=== PATIENT | female | born 1965 | race Caucasian/White ===

== ENCOUNTER 2019-03-14 19:41 | Emergency (ER) | payer OTHER ==
--- OUTSIDE RECORDS SUMMARY | 2019-03-14 19:44 | XMS REPORT ---
:1965 [facility] Address [address] [place] [address] Care Team Providers Name Role Phone Unavailable Unavailable Unavailable Payers Payer Name Policy Type Policy Number Effective Date Expiration Date Problems This patient has no known problems. Allergies, Adverse Reactions, Alerts Allergy Name Allergy Status Severity Reaction(s) Onset Inactive Treating Comments Type Date Date Clinician No Known DA Active U 2005-0 Contrast 5-28 Allergies 00:00: 00 No Known Drug DA Active U 2005-0 Allergies 5-28 00:00: 00 No Known Food DA Active U 2005-0 Allergies 5-28 00:00: 00 No Known Other DA Active U 2005-0 Allergies 5-28 00:00: 00 No Known Drug DA Active U 2005-0 Intolerances 5-27 00:00: 00 Medications This patient has no known medications. Results Test Description Test Time Test Comments Text Results Atomic Results Result Comments BREAST,BIOPSY 2019-02-12 RUN DATE: 16:57:00 02/13/19 [facility] PAGE 1 RUN TIME: 0910 Specimen Inquiry RUN USER: INTERFACE [facility] [id number] LOC: RULA #: [id number] AGE/SX: 53/F ROOM: RE02/09/19REG DR: Heaven Velazquez NP : 67 BED: DIS: STATUS: PRE REF TLOC: SPEC #: [id number] RECD: 02/09/19 STATUS: FADY RE # : [id number] KARL: 02/09/19- SUBM DR: Heaven Velazquez NP ENTERED: 02/10/19 SP TYPE: BREABX OTHR DR: Dmitry Chan MD ORDERED: LEVEL IV CODES: [id number] - BREAST, NOS COPIES TO: Heaven Velazquez NP [address] [facility] [address] [place], [place] [id number] [place] [address] [place] [address] PROCEDURES: LEVEL IV (Incomplete) TISSUES: BREAST, NOS - RIGHT BREAST BIOPSY CLINICAL HISTORY 53 year old, R/O IDC (kr ) FIXATION TIME: RIGHT breast mass 1:00: In formalin: 01/09/19 at 1425 Out of formalin: at 1825 FINAL DIAGNOSIS RIGHT breast mass 1:00, core biopsies - invasive ductal carcinoma - Register grade 2, score 7 (tubules - 3, nuclei - 2, mitotic rate - 2) - maximum extent of tumor: 10 mm COMMENT: The technical components were performed at [facility] [place], [address] [facility], [address], [place] [address]. The interpretation is provided by [facility], [address], [place] [address]. Controls received from [facility] stained appropriately. Tissue code 1 CPT code(s): 35109, 77079-30, 31114-14 cds/kr dt: 02/11/19 CONTINUED ON NEXT PAGE RUN DATE: 02/13/19 [facility] PAGE 2 RUN TIME: 909 Specimen Inquiry RUN USER: INTERFACE SPEC #: [id number] PATIENT: ANNI LIZAMA #[id number] (Continued) FINAL DIAGNOSIS (Continued) cds/wpd 02/12/19 The following results are received from [facility], [place], [place] on February 13, 2019. BODY SITE: RIGHT breast tissue [id number] PROGNOSTIC / PREDICTIVE MARKERS Histology Image Analysis, Global IHC Quantitative Breast Panel ER: NEGATIVE Tumor Stained: 0% Intensity: 0+ Internal Control: Absent Anjum Score: 0 PgR: NEGATIVE Tumor Stained: 0% Intensity: 0+ Internal Control: Absent Anjum Score: 0 HER2 Breast: POSITIVE Score: 3+ Percentage of cells with uniform Intensive Complete Membrane Stainin% KI67: HIGH Tumor Stained: 28% Intensity: 3+ COMMENT: Specimen handling met the requirements specified in the latest version of the ASCO/CAP guidelines. I acknowledge the above findings. C. Edilson Pandya M.D., Pathologist/ksr February 13, 2019 @ 0735 CONTINUED ON NEXT PAGE RUN DATE: 02/13/19 [facility] PAGE 3 RUN TIME: 10 Specimen Inquiry RUN USER: INTERFACE SPEC #: [id number] PATIENT: ANNI LIZAMA #[id number] (Continued) GROSS DESCRIPTION ANATOMIC SOURCE OF TISSUE (per Requisition): RIGHT breast mass 1:00 The specimen is received in a formalin-filled container, labeled with the patient's name and designated "RIGHT breast mass 1:00". The specimen consists of two rubin- pink and yellow fibrofatty cylindrical soft tissues, 1.6 and 1.8 cm in length, submitted in toto labeled A1. roque/urthy 02/10/19 @ 0851 MICROSCOPIC DESCRIPTION Tissue cores of the RIGHT breast mass 1:00 show extensive involvement of both cores by invasive carcinoma with mixed lobular/ ductal features. The tumor is Register Grade 2, score 7 (tubules - 3, nuclei - 2, mitotic rate - 2) . E-Cadherin and p120 immunostains show strong positive membranous staining consistent with ductal origin. Prognostic markers will be performed on block A1. tracey/kr dt: 02/11/19 / tracey/wpd 02/12/19 Signed Guanaco Pandya 1657 END OF REPORT BREAST,BIOPSY 2019-02-12 RUN DATE: 16:57:00 02/13/19 [facility] PAGE 1 RUN TIME: 913 Specimen Inquiry RUN USER: INTERFACE PATIENT: DLANNI MCKENNA LOC: RULA U #: [id number] AGE/SX: 53/F ROOM: RE02/09/19REG DR: Heaven Velazquez NP : 67 BED: DIS: STATUS: PRE REF TLOC: SPEC #: [id number] RECD: 02/09/19 STATUS: FADY REQ # : [id number] KARL: 02/09/19- SUBM DR: Heaven Velazquez NP ENTERED: 02/10/19 SP TYPE: BREABX OTHR DR: Dmitry Chan MD ORDERED: LEVEL IV COMMENTS: CODES: [id number] - BREAST, NOS COPIES TO: Heaven Velazquez [facility] [address] [place], [place] [id number] [place] [address] [address] [place], [place] [id number] PROCEDURES: LEVEL IV (Incomplete) TISSUES: BREAST, NOS - RIGHT BREAST BIOPSY CLINICAL HISTORY 53 year old, R/O IDC (kr) FIXATION TIME: RIGHT breast mass 1:00: In formalin: 01/09/19 at 1425 Out of formalin: 01/10/19 at 1825 FINAL DIAGNOSIS RIGHT breast mass 1:00, core biopsies - invasive ductal carcinoma - Register grade 2, score 7 (tubules - 3, nuclei - 2, mitotic rate - 2) - maximum extent of tumor: 10 mm COMMENT: [facility], [address] [place] [address], [address], [place] [address]. The interpretation is provided by [facility], [address] [place] [address]. Controls received from [facility] stained appropriately. Tissue code 1 CPT code(s): 17106, 74022-95, 43573-60 * * CONTINUED ON NEXT PAGE RUN DATE: 02/13/19 [facility] PAGE 2 RUN TIME: 913 Specimen Inquiry RUN USER: INTERFACE SPEC #: [id number] PATIENT: ANNI LIZAMA #[id number] (Continued) FINAL DIAGNOSIS (Continued) cds/kr dt: 02/11/19 cds/ wpd 02/12/19 The following results are received from [facility], [place], [place] on February 13, 2019. BODY SITE: RIGHT breast tissue [id number] PROGNOSTIC / PREDICTIVE MARKERS Histology Image Analysis, Global IHC Quantitative Breast Panel ER: NEGATIVE Tumor Stained: 0% Intensity: 0+ Internal Control: Absent Anjum Score: 0 PgR: NEGATIVE Tumor Stained: 0% Intensity: 0+ Internal Control: Absent Anjum Score: 0 HER2 Breast: POSITIVE Score: 3+ Percentage of cells with uniform Intensive Complete Membrane Stainin% KI67: HIGH Tumor Stained: 28% Intensity: 3+ COMMENT: Specimen handling met the requirements specified in the latest version of the ASCO/CAP guidelines. I acknowledge the above findings. Travis Pandya M.D., Pathologist/ksr February 13, 2019 @ 0735 CONTINUED ON NEXT PAGE RUN DATE: 02/13/19 [facility] PAGE 3 RUN TIME: 913 Specimen Inquiry RUN USER: INTERFACE SPEC #: [id number] PATIENT: ANNI LIZAMA #[id number] (Continued) GROSS DESCRIPTION ANATOMIC SOURCE OF TISSUE (per Requisition): RIGHT breast mass 1:00 The specimen is received in a formalin-filled container, labeled with the patient's name and designated "RIGHT breast mass 1:00". The specimen consists of two rubin- pink and yellow fibrofatty cylindrical soft tissues, 1.6 and 1.8 cm in length, submitted in toto labeled A1. estephania 02/10/19 @ 0851 MICROSCOPIC DESCRIPTION Tissue cores of the RIGHT breast mass 1:00 show extensive involvement of both cores by invasive ductal carcinoma. The tumor is Chidi Grade 2, score 7 (tubules - 3, nuclei - 2, mitotic rate - 2). E-Cadherin and p120 immunostains show strong positive membranous staining consistent with ductal origin. Prognostic markers will be performed on block A1. tracey/rutyh dt: 02/11/19 / tracey/gato 02/12/19 Signed MumtazGuanaco Edilson 1657 END OF REPORT
--- OUTSIDE RECORDS SUMMARY | 2019-03-14 19:44 | XMS REPORT | Clinical Summary ---
:1965 Author Organization [facility] Address [address] [place] [address] Care Team Providers Name Role Phone Bala Chaves MD Primary Care Provider Allergies No Known Allergies Medications Medication Sig Dispensed Refills Start Date End Date Status DULoxetine Take by mouth once 3 02/03/2016 Active (CYMBALTA) 30 MG daily. capsule telmisartan Take 80 mg by mouth 1 02/03/2016 Active (MICARDIS) 80 MG once daily. tablet VITAMIN D2 50,000 TAKE 1 CAPSULE BY 0 02/27/2016 Active unit capsule MOUTH WEEKLY. sitaGLIPtin Take 100 mg by mouth 0 Active (JANUVIA) 100 MG daily. tablet ezetimibe-simvastati Take 1 tablet by 0 Active n (VYTORIN) 10-10 mg mouth nightly. per tablet TRULICITY 1.5 mg/0.5 INJECT UNDER THE 3 05/30/2016 Active mL pen injector SKIN 1.5MG WEEKLY ZETIA 10 mg tablet Take 10 mg by mouth 1 07/25/2016 Active once daily. rosuvastatin Take 20 mg by mouth 0 02/23/2017 Active (CRESTOR) 20 MG once daily. tablet lactulose TAKE 15 ML BY MOUTH 0 07/01/2017 Active (CHRONULAC) 10 EVERY 12 HOURS gram/15 mL solution NEEDED FOR CONSTIPATION UNTIL SYMPTOMS RESOLVE omeprazole TAKE ONE CAPSULE BY 3 06/29/2017 Active (PriLOSEC) 40 MG MOUTH TWICE A DAY capsule FOR 15 DAYS,THEN 1 CAPSULE DAILY sucralfate TAKE 1 TABLET BY 0 07/01/2017 Active (CARAFATE) 1 gram MOUTH 3 TIMES A DAY tablet BEFORE FOOD FOR 10 DAYS acetaminophen-codein Take 1 tablet by 0 01/22/2018 Active e (TYLENOL WITH mouth every 6 (six) CODEINE #3) 300-30 hours as needed. for mg per tablet pain metFORMIN XR Take 500 mg by mouth 1 12/31/2017 Active (GLUCOPHAGE-XR) 500 daily with mg 24 hr tablet breakfast. Active Problems Problem Noted Date Adhesive capsulitis of left shoulder 06/12/2017 Family History Medical History Relation Name Comments Melanoma Brother Arthritis Mother Glaucoma Mother Other Sister Arachnoiditis Relation Name Status Comments Brother Mother Sister Social History Tobacco Use Types Packs/Day Years Used Date Never Smoker Smokeless Tobacco: Never Used Alcohol Use Drinks/Week oz/Week Comments Yes 2 Standard drinks or equivalent 1.2 per day Sex Assigned at Date Recorded Not on file Job Start Date Occupation Industry Not on file Not on file Not on file Travel History Travel Start Travel End No recent travel history available. Last Filed Vital Signs Not on file Plan of Treatment Health Maintenance Due Date Last Done Comments BREAST CANCER SCREENING 2016 COLONOSCOPY SCREENING 2016 SHINGLES VACCINES (#1) 2016 INFLUENZA VACCINE 04/09/2019 Results Not on fileafter 03/13/2018 Advance Directives Patient has advance care planning documents on file. For more information, please contact:[place] [address]
[2019-03-14] MEDS ORDERED: BISACODYL 10 MG RECTAL SUPP ONE (20:20)
[2019-03-14] MEDS ORDERED: NA CHLORIDE 0.9% 1,000 ML ONE (20:32)
[2019-03-14 20:51] LABS: Urine Bacteria <20 /HPF (<20); Urine Culture Reflex Order NOT NEEDED
[2019-03-14 20:52] LABS: Urine Blood 1+ (NEG); Urine Glucose NEGATIVE (NEG); Urine Protein 1+ (NEG); Urine Specific Gravity 1.025 (1.005-1.030); Urine pH 6.5 (5.0-7.0)
[2019-03-14 20:56] LABS: Basophils % 0.6 % (0-1.3); Eosinophils % 0.6 % (0-4.4); Lymphocytes % 7.3 % (15.3-44.8); MPV 8.8 fL (7.6-11.3); Monocytes % 1.5 % (3.3-12.3); RBC Red Blood Cell Count 4.57 M/uL (3.86-4.86)
[2019-03-14 21:12] LABS: Potassium 3.9 mmol/L (3.5-5.1)
[2019-03-14 21:31] LABS: Blood Morphology Comment NOTED (NOT SEEN); Burr Cells FEW; Platelet Estimate ADEQ
[2019-03-14] MEDS ORDERED: FLEET ENEMA ADULT PR ONE (21:42)
--- NOTE | 2019-03-14 23:12 | EDPHYS ---
Physician Documentation [facility] Name: Jacey Saeed Age: 53 yrs Sex: Female : 1965 Arrival Date: 03/14/2019 Time: 19:43 Bed 30 Private MD: Sherman Chaves B ED Physician John Friedman HPI: 03/14 20:19 This 53 yrs old Female presents to ER via Ambulatory with complaints of snw Constipation, Urinary Problem. 20:19 Onset: The symptoms/episode began/occurred suddenly, today. Associated signs and snw symptoms: Pertinent positives: constipation, urinary retention. Modifying factors: The patient symptoms are alleviated by nothing, tried digital, miralax, prune juice, suppository. The patient has not experienced similar symptoms in the past. It is unknown whether or not the patient has recently seen a physician. 1st chemo tx last week, premedicated with Zofran. 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 - Social history:: Smoking status: Patient/guardian denies using tobacco. - Ebola Screening: : No symptoms or risks identified at this time. ROS: 20:18 Eyes: Negative for injury, pain, redness, and discharge, ENT: Negative for injury, snw pain, and discharge, Neck: Negative for injury, pain, and swelling, Cardiovascular: Negative for chest pain, palpitations, and edema, Respiratory: Negative for shortness of breath, cough, wheezing, and pleuritic chest pain. 20:18 Back: Negative for injury and pain, MS/Extremity: Negative for injury and deformity, Skin: Negative for injury, rash, and discoloration, Neuro: Negative for headache, weakness, numbness, tingling, and seizure. 20:18 Constitutional: Positive for body aches, malaise, constipation. 20:18 Abdomen/GI: Positive for constipation. 20:18 : Positive for difficulty urinating. Exam: 20:17 Constitutional: This is a well developed, well nourished patient who is awake, alert, snw and anxious Head/Face: Normocephalic, atraumatic. Eyes: Pupils equal round and reactive to light, extra-ocular motions intact. Lids and lashes normal. Conjunctiva and sclera are non-icteric and not injected. Cornea within normal limits. Periorbital areas with no swelling, redness, or edema. ENT: Nares patent. No nasal discharge, no septal abnormalities noted. Tympanic membranes are normal and external auditory canals are clear. Oropharynx with no redness, swelling, or masses, exudates, or evidence of obstruction, uvula midline. Mucous membranes moist. Neck: Trachea midline, no thyromegaly or masses palpated, and no cervical lymphadenopathy. Supple, full range of motion without nuchal rigidity, or vertebral point tenderness. No Meningismus. Chest/axilla: Normal chest wall appearance and motion. Nontender with no deformity. No lesions are appreciated. Cardiovascular: Regular rate and rhythm with a normal S1 and S2. No gallops, murmurs, or rubs. Normal PMI, no JVD. No pulse deficits. Back: No spinal tenderness. No costovertebral tenderness. Full range of motion. Skin: Warm, dry with normal turgor. Normal color with no rashes, no lesions, and no evidence of cellulitis. MS/ Extremity: Pulses equal, no cyanosis. Neurovascular intact. Full, normal range of motion. Neuro: Awake and alert, GCS 15, oriented to person, place, time, and situation. Cranial nerves II-XII grossly intact. Motor strength 5/5 in all extremities. Sensory grossly intact. Cerebellar exam normal. Normal gait. Psych: Awake, alert, with orientation to person, place and time. Behavior, mood, and affect are within normal limits. 20:17 Respiratory: the patient does not display signs of respiratory distress, Respirations: shallow respirations, tachypnea, Breath sounds: are clear throughout. 20:17 Abdomen/GI: Inspection: distension, that is mild, Palpation: mild abdominal tenderness, "feels bloated". Vital Signs: 19:49 BP 96 / 44; Pulse 73; Resp 16; Temp 98.4; Pulse Ox 98% on R/A; Weight 84.82 kg; Height la1 5 ft. 6 in. (167.64 cm); 20:52 BP 105 / 55; Pulse 71; Resp 8 S; Pulse Ox 100% on R/A; ca1 21:53 BP 117 / 47; Pulse 69; Resp 17 S; Pulse Ox 100% on R/A; ca1 22:30 BP 123 / 77; Pulse 74; Resp 16 S; Temp 98.2(O); Pulse Ox 98% on R/A; ca1 23:20 BP 127 / 82; Pulse 69; Resp 16 S; Pulse Ox 98% on R/A; ca1 19:49 Body Mass Index 30.18 (84.82 kg, 167.64 cm) la1 MDM: 19:55 Patient medically screened. snw 23:08 Data reviewed: vital signs, nurses notes. Data interpreted: Pulse oximetry: on room air snw is 100 %. Interpretation: normal. Counseling: I had a detailed discussion with the patient and/or guardian regarding: the historical points, exam findings, and any diagnostic results supporting the discharge/admit diagnosis, lab results, the need for outpatient follow up, for definitive care. Response to treatment: the patient's symptoms have markedly improved after treatment, +BM, +UOP. Special discussion: Based on the history and exam findings, there is no indication for further emergent testing or inpatient evaluation. I discussed with the patient/guardian the need to see the primary care provider for further evaluation of the symptoms. ED course: will bolus rest of IVF. 03/14 19:54 Order name: CBC with Diff snw 03/14 19:54 Order name: Chem 7; Complete Time: 21:16 snw 03/14 19:54 Order name: Urine Culture snw 03/14 19:54 Order name: Urine Microscopic Only; Complete Time: 20:59 snw 03/14 20:03 Order name: CBC with Automated Diff; Complete Time: 21:37 EDMS 03/14 20:42 Order name: Urine Dipstick--Ancillary (enter results); Complete Time: 20:59 mt 03/14 19:54 Order name: Cath; Complete Time: 20:33 snw 03/14 19:54 Order name: Urine Dipstick-Ancillary (obtain specimen); Complete Time: 20:33 snw 03/14 21:02 Order name: Manual Differential; Complete Time: 21:37 EDMS Administered Medications: 20:10 Drug: Dulcolax Suppository 10 mg Route: WA; ca1 23:00 Follow up: Response: No adverse reaction; Other; BM x 4. [place] relieved ca1 20:20 Drug: NS 0.9% 1000 ml Route: IV; Rate: 125 ml/hr; Site: right antecubital; ca1 23:25 Follow up: IV Status: IV infiltrated ca1 Disposition: 03/15 01:34 Co-signature as Attending Physician, John Friedman MD. brenden Disposition: 03/14/19 23:11 Discharged to Home. Impression: Volume depletion, Constipation. - Condition is Stable. - Discharge Instructions: Constipation, Adult, Dehydration, Adult, High-Fiber Diet, Rehydration, Adult. - Prescriptions for Miralax 17 gram/dose Oral - take 1 packet by ORAL route once daily dilute powder in 8 ounces of water or juice; 1 box. - Medication Reconciliation Form, Thank You Letter, Antibiotic Education, Prescription Opioid Use form. - Follow up: Sherman Chaves; When: 2 - 3 days; Reason: Recheck today's complaints, Continuance of care, Re-evaluation by your physician. Follow up: Emergency Department; When: As needed; Reason: Worsening of condition. Signatures: Dispatcher [employer] EDMS John Friedman MD MD pkl Irma Taylor, ESTABLISHMENT GUIDE-C ESTABLISHMENT GUIDE-Csnw Camacho Crum RN RN la1 Jolly Johnson RN RN ca1 Corrections: (The following items were deleted from the chart) 03/14 23:37 23:11 03/14/2019 23:11 Discharged to Home. Impression: Volume depletion; Constipation. ca1 Condition is Stable. Discharge Instructions: Constipation, Adult, Dehydration, Adult, High-Fiber Diet, Rehydration, Adult. Prescriptions for Miralax 17 gram/dose Oral - take 1 packet by ORAL route once daily dilute powder in 8 ounces of water or juice; 1 box. and Forms are Medication Reconciliation Form, Thank You Letter, Antibiotic Education, Prescription Opioid Use. Follow up: Sherman Chaves; When: 2 - 3 days; Reason: Recheck today's complaints, Continuance of care, Re-evaluation by your physician. Follow up: Emergency Department; When: As needed; Reason: Worsening of condition. snw
--- NOTE | 2019-03-14 23:12 | ER ---
Nurse's Notes [facility] Name: Jacey Saeed Age: 53 yrs Sex: Female : 1965 Arrival Date: 03/14/2019 Time: 19:43 Bed 30 Private MD: Sherman Chaves B Diagnosis: Volume depletion;Constipation Presentation: 03/14 19:46 Presenting complaint: Patient states: I have been unable to urinate for the last 6 la1 hours and I also am constipated. I started chemo [facility] on Saturday for stage one right breast CA. Transition of care: patient was not received from another setting of care. Onset of symptoms was March 14, 2019. Risk Assessment: Do you want to hurt yourself or someone else? Patient reports no desire to harm self or others. Initial Sepsis Screen: Does the patient meet any 2 criteria? No. Patient's initial sepsis screen is negative. Does the patient have a suspected source of infection? No. Patient's initial sepsis screen is negative. Care prior to arrival: None. 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 - Social history:: Smoking status: Patient/guardian denies using tobacco. - Ebola Screening: : No symptoms or risks identified at this time. Screenin:00 Abuse screen: Denies threats or abuse. Denies injuries from another. Nutritional ca1 screening: No deficits noted. Tuberculosis screening: No symptoms or risk factors identified. Fall Risk IV access (20 points). Assessment: 20:00 General: Appears in no apparent distress. comfortable, Behavior is cooperative, ca1 appropriate for age. General:. Pain: Complains of pain in suprapubic area, right lower quadrant and left lower quadrant Pain currently is 8 out of 10 on a pain scale. Quality of pain is described as crampy, Pain began 1 day ago. Is intermittent. Neuro: Level of Consciousness is awake, alert, obeys commands, Oriented to person, place, time, situation. Cardiovascular: Heart tones S1 S2 present Capillary refill < 3 seconds Patient's skin is warm and dry. Pulses are all present. Cardiovascular:. Respiratory: Airway is patent Respiratory effort is even, unlabored, Respiratory pattern is regular, symmetrical, Breath sounds are clear bilaterally. GI: Abdomen is round non-distended, Bowel sounds present X 4 quads. Abd is soft X 4 quads Abdomen is tender to palpation in suprapubic area Reports constipation, since 3 days ago. : Reports inability to void, since 6 hours ago Pt says she has the urge to void but unable to. EENT: No deficits noted. No signs and/or symptoms were reported regarding the EENT system. Derm: Skin is intact, is healthy with good turgor, Skin is dry, Skin is pale, Skin temperature is warm. Musculoskeletal: Circulation, motion, and sensation intact. Capillary refill < 3 seconds, Range of motion: intact in all extremities. 20:52 Reassessment: Patient appears in no apparent distress at this time. Patient and/or ca1 family updated on plan of care and expected duration. Pain level reassessed. Patient is alert, oriented x 3, equal unlabored respirations, skin warm/dry/pink. 21:53 Reassessment: Patient appears in no apparent distress at this time. Patient is alert, ca1 oriented x 3, equal unlabored respirations, skin warm/dry/pink. Assisted pt with BM. BM 2x, reports relief at this time. 22:50 Reassessment: Patient appears in no apparent distress at this time. Patient is alert, ca1 oriented x 3, equal unlabored respirations, skin warm/dry/pink. Pt had BM x 4, states that she felt relieved and was defecating without difficulty. 23:20 Reassessment: Patient appears in no apparent distress at this time. Patient is alert, ca1 oriented x 3, equal unlabored respirations, skin warm/dry/pink. Vital Signs: 19:49 BP 96 / 44; Pulse 73; Resp 16; Temp 98.4; Pulse Ox 98% on R/A; Weight 84.82 kg; Height la1 5 ft. 6 in. (167.64 cm); 20:52 BP 105 / 55; Pulse 71; Resp 8 S; Pulse Ox 100% on R/A; ca1 21:53 BP 117 / 47; Pulse 69; Resp 17 S; Pulse Ox 100% on R/A; ca1 22:30 BP 123 / 77; Pulse 74; Resp 16 S; Temp 98.2(O); Pulse Ox 98% on R/A; ca1 23:20 BP 127 / 82; Pulse 69; Resp 16 S; Pulse Ox 98% on R/A; ca1 19:49 Body Mass Index 30.18 (84.82 kg, 167.64 cm) la1 ED Course: 19:43 Patient arrived in ED. am2 19:43 Sherman Chaves MD is Private Physician. am2 19:48 Triage completed. la1 19:49 Arm band placed on left wrist. la1 19:53 Irma Taylor FNP-C is PHCP. snw 19:53 John Friedman MD is Attending Physician. snw 19:59 Bladder scan completed. 243. la1 20:00 Patient has correct armband on for positive identification. Placed in gown. Bed in low ca1 position. Call light in reach. Side rails up X 1. Pulse ox on. NIBP on. Warm blanket given. 20:10 Inserted saline lock: 22 gauge in right antecubital area, using aseptic technique. ca1 Blood collected. 20:17 Jolly Johnson, ISABEL is Primary Nurse. ca1 20:22 No provider procedures requiring assistance completed. Straight cath inserted, using ca1 sterile technique, 16 Fr. Specimen obtained. Returned marah urine. Patient tolerated well. 20:51 Lab(s) recollected, by lab intern, sent to lab. ca1 23:11 Sherman Chaves MD is Referral Physician. snw 23:30 IV discontinued, intact, bleeding controlled, No redness/swelling at site. Pressure ca1 dressing applied. Administered Medications: 20:10 Drug: Dulcolax Suppository 10 mg Route: NH; ca1 23:00 Follow up: Response: No adverse reaction; Other; BM x 4. Spring relieved ca1 20:20 Drug: NS 0.9% 1000 ml Route: IV; Rate: 125 ml/hr; Site: right antecubital; ca1 23:25 Follow up: IV Status: IV infiltrated ca1 Outcome: 23:11 Discharge ordered by . snw 23:30 Discharged to home via wheelchair, with significant other. ca1 23:30 Condition: stable 23:30 Discharge instructions given to patient, Instructed on discharge instructions, follow up and referral plans. medication usage, Demonstrated understanding of instructions, follow-up care, medications, Prescriptions given X 1. 23:37 Patient left the ED. ca1 Signatures: Irma Taylor, [employer]-C [employer] SY[employer] ST[employer]PER-Csnw Camacho Crum RN RN [email or web address] Ramona Barber am2 Jolly Johnson RN RN ca1 Corrections: (The following items were deleted from the chart) 20:35 20:10 Inserted saline lock: 22 gauge in left antecubital area, using aseptic technique. ca1 Blood collected. ca1 21:53 21:21 Reassessment: Patient appears in no apparent distress at this time. Patient is ca1 alert, oriented x 3, equal unlabored respirations, skin warm/dry/pink. Assisted pt with BM. BM 2x, reports relief at this time. ca1
== END 2019-03-14 23:37 | disposition home or self-care (01) ==
LOC: ER 19:41
DX: K59.00 Constipation, unspecified (principal); E86.9 Volume depletion, unspecified; E11.9 Type 2 diabetes mellitus without complications; E78.00 Pure hypercholesterolemia, unspecified; I10 Essential (primary) hypertension; C50.919 Malignant neoplasm of unspecified site of unspecified female breast; Z88.2 Allergy status to sulfonamides; Z79.4 Long term (current) use of insulin
CPT/HCPCS: 36415; 51702; 80048; 81003; 81015; 85025; 87086; 87088; 96360; 96361; 99284; J7030

== ENCOUNTER 2020-12-04 14:51 | Emergency (ER) | payer OTHER ==
--- OUTSIDE RECORDS SUMMARY | 2020-12-04 14:53 | XMS REPORT | Continuity of Care Document ---
:1965 Author Organization [facility] t Address 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 0-04 [facility] of left of left 00:00: st shoulder shoulder 00 Allergies, Adverse Reactions, Alerts Allergy Allergy Status Severity Reaction(s) Onset Inactive Treating Comm ents Source Name Type Date Date Clinician Sulfa DA Active MO 2018-09 [facility] (Sulfona 09-30 [facility] Antib[facility] [place] glipizid DA Active 2018-09 [facility] e 09-30 [facility] [place] Sulfa DA Active 2018-09 [facility] (Sulfona 09-20 [facility] Antibiot 00 l of ics) [place] glipizid DA Active 2018-09 [facility] e 09-20 [facility] [place] No Known DA Active U 2004- [facility] Contrast 02-03 [facility] All[facility]ie 00:[facility]: [facility] [place] No Known DA Active U 2004- [facility] Drug 02-03 [facility] All[facility]: [facility] [place] No Known DA Active U 2004- [facility] Food 02-03 [facility] All[facility]ie 00:00: [facility]ospita s 00 l [facility] No Known DA Active U 2004- [facility] Other 02-03 [facility] Allergie 00:00: Hospita s 00 l [facility] No Known DA Active U 2004- [facility] Drug 02-02 [facility] Intolera 00:00: [facility] n[facility] [place] Family History Family Member Diagnosis Comments Start Date Stop Date Source Natural brother Melanoma [facility] ethodist Natural mother Arthritis [place] [facility] thodist Natural mother Glaucoma [facility] thodist Natural sister Other [facility] thodist Social History Social Habit Start Date Stop Date Quantity Comments Source Tobacco use and 2018-02-26 2018-02-26 Never used [facility] ethodist exposure 00:00:00 00:00:00 Alcohol intake 2018-02-26 2018-02-26 Current drinker [place] [facility] 00:00:00 00:00:00 of alcohol (finding) Alcohol Comment 2016-04-04 2016-04-04 per day [facility] ethodist 00:00:00 00:00:00 Sex [birth year] [facility] ethodist 00:00:00 00:00:00 Smoking Status Start Date Stop Date Source Never smoker [place] [facility] t Medications Ordered Filled Start Stop Current Ordering Indication Dosage Frequency Signature Comments Components Source Medication Medication Date Date Medication? Clinician (SIG) Name Name acetaminoph Yes 1{tbl} Q6H Take 1 [place] en-codeine 5-16 tablet by [place] (TYLENOL 00:00: mouth st WITH 00 every 6 CODEINE #3) (six) 300-30 mg hours as per tablet needed. for pain metFORMIN Yes 500mg QD Take 500 [place] XR 4-24 mg by Methodi (GLUCOPHAGE 00:00: mouth st -XR) 500 mg 00 daily with 24 hr breakfast. tablet lactulose 2016-09 Yes TAKE 15 ML [place] (CHRONULAC) 0-23 BY MOUTH [place] 10 gram/15 00:00: EVERY 12 st mL solution 00 HOURS NEEDED FOR CONSTIPATI ON UNTIL SYMPTOMS RESOLVE sucralfate 2016-09 Yes TAKE 1 [place] (CARAFATE) 0-23 TABLET BY [place] 1 gram 00:00: MOUTH 3 st tablet 00 TIMES A DAY BEFORE FOOD FOR 10 DAYS omeprazole 2016-09 Yes TAKE ONE [place] (PriLOSEC) 0-21 CAPSULE BY Met hodi 40 MG 00:00: MOUTH st capsule 00 TWICE A DAY FOR 15 DAYS,THEN 1 CAPSULE DAILY rosuvastati Yes 20mg QD Take 20 mg [place] n (CRESTOR) 6-17 by mouth Meth [place] 20 MG 00:00: once st tablet 00 daily. sitaGLIPtin 2015-09 Yes 100mg QD Take 100 [place] (JANUVIA) 1-30 mg by Methodi 100 MG 09:48: mouth st tablet 41 daily. ezetimibe-s 2015-09 Yes 1{tbl} QD Take 1 [place] imvastatin 1-30 tablet by [place] (VYTORIN) 09:48: mouth st 10-10 mg 41 nightly. per tablet ZETIA 10 mg 2015-09 Yes 10mg QD Take 10 mg Robles tablet 1-16 by mouth Methodi 00:00: once st 00 daily. TRULICITY Yes INJECT [place] 1.5 mg/0.5 9-21 UNDER THE [facility] [place] mL pen 00:00: SKIN 1.5MG st injector 00 WEEKLY VITAMIN D2 Yes TAKE 1 [place] 50,000 unit 6-20 CAPSULE BY Me thodi capsule 00:00: MOUTH st 00 WEEKLY. DULoxetine Yes QD Take by [place] (CYMBALTA) 5-27 mouth once Met hodi 30 MG 00:00: daily. st capsule 00 telmisartan Yes 80mg QD Take 80 mg [place] (MICARDIS) 5-27 by mouth Metho di 80 MG 00:00: once st tablet 00 daily. Procedures This patient has no known procedures. Plan of Care Planned Activity Planned Date Details Comments Source Future Scheduled 2020-04-09 INFLUENZA VACCINE Rosi cramer [facility] Test 00:00:00 [code = INFLUENZA VACCINE] Future Scheduled 2016 BREAST CANCER [facility] thodist Test 00:00:00 SCREENING [code = BREAST CANCER SCREENING] Future Scheduled 2016 COLONOSCOPY SCREENING [place] [facility] Test 00:00:00 [code = COLONOSCOPY SCREENING] Future Scheduled 2016 SHINGLES VACCINES [place] [facility] Test 00:00:00 (#1) [code = SHINGLES VACCINES (#1)] Future Scheduled 1987 Screening for [facility]ist Test 00:00:00 malignant neoplasm of cervix (procedure) [code = 269055127] Future Scheduled 1984 Hepatitis C screening [place] [facility] Test 00:00:00 (procedure) [code = 944012919] Future Scheduled 1982 COVID-19 VACCINE (1) [place] [facility] Test 00:00:00 [code = COVID-19 VACCINE (1)] Encounters Start End Encounter Admission Attending Care Care Encounter Source Date/Time Date/Time Type Type Clinicians Facility Department ID 2019-05-08 2019-05-08 Jeanne Corcoran [facility] [id number] 00:00:00 00:00:00 Reilly VARGAS [id number] [facility] [id number] [place] [id number] 2019-04-14 2019-04-14 Patient Doctor JACKIE [id number] 00:00:00 00:00:00 Secure Msg Unassigned, TALIA [id number] Kevil [facility] [id number] [id number] Results Test Description Test Time Test Comments Results Result [facility] e Comments BREAST,EXCISION 2019-08-10 OF LESION/MASS 14:20:00 RUN DATE: 08/11/19 [facility] PAGE 1 RUN TIME: 42 Specimen Inquiry RUN USER: INTERFACE JULIANA [facility]NT[facility]: [id number] #: [id number] AGE/SX: 53/F ROOM: RE07/31/19REG DR: Elva Rivera MD : 67 BED: DIS: STATUS: [facility] TLOC: SPEC #: [id number] RECD: 07/31/19 STATUS: FADY RE #: [id number] KARL: 07/31/19- SUBM DR: Elva Rivera MD ENTERED: 07/31/19 SP TYPE: BREAST,EXC OTHR DR: ORDERED: LEVEL SURGIC CODES: [id number] - BREAST, NOS PROCEDURES: LEVEL SURGIC (Incomplete) TISSUES: BREAST, NOS - RIGHT BREAST TISSUE X 5 CLINICAL HISTORY 53 year old, RIGHT breast cancer (kr) FINAL DIAGNOSIS Specimen #1 RIGHT breast, excision with localization wire: - no residual invasive carcinoma identified - fibrotic tumor bed (1.8 cm) and biopsy clip identified - fibrocystic changes with mild usual ductal hyperplasia (UDH) Specimen #2 sentinel lymph nodes, RIGHT axilla: - 6 of 6 lymph nodes negative for metastatic carcinoma - pankeratin immunostains are negative on blocks B1 - B4 Specimen #3 new medial margin, excision: - no carcinoma present Specimen #4 new superior margin, excision: - no carcinoma present Specimen #5 new inferior margin, excision: - no carcinoma present COMMENT: The technical components were performed at [facility] [place], [address], [address], [place] [address]. The interpretation is provided by [facility], [address], [place] [address]. Controls received from [facility] stained appropriately. TUMOR SUMMARY - RIGHT BREAST Procedure: - Excision CONTINUED ON NEXT PAGE RUN DATE: 08/11/19 [facility] PAGE 2 RUN TIME: 741 Specimen Inquiry RUN USER: INTERFACE SPEC #: [id number] PATIENT: DLANNILEIGHTON MCKENNA #[id number] (Continued) ------- FINAL DIAGNOSIS (Continued) Specimen Laterality: - RIGHT Tumor Site: - 1:00 Tumor Size: - No residual invasive carcinoma Histologic Type: - No residual invasive carcinoma Histologic Grade: - No residual invasive carcinoma Ductal carcinoma in-situ (DCIS): - Not identified Lymph Nodes: Total number of LNs examined: 6 Number of sentinel LNs examined: 6 Number of LNs with macrometastases: 0 Number of LNs with micrometastases: 0 Number of LNs with isolated tumor cells: 0 - Pankeratin immuonstains are negative on blocks B1 - B4 Treatment Effect in the Breast: - No residual invasive carcinoma is present in the breast after presurgical therapy Treatment Effect in the Lymph Nodes: - No lymph node metastasis and no prominent fibrous scarring in the lymph nodes Pathologic Stage Classification: - Primary Tumor: pT0 - Lymph Nodes: pN0 CPT code(s): 12143 x7, 61680 x2, 67122-69, 00247-91 x3 cds/wpd 08/05/19 cds/wpd 08/10/19 GROSS DESCRIPTION ANATOMIC SOURCE OF TISSUE (per Requisition): 1. RIGHT breast lumpectomy, long - lateral, short - superior, double clip - deep 2 [place] nodes (total of three), hot @ 8132 3. New medial margin, stitch wylie new margin CONTINUED ON NEXT PAGE RUN DATE: 08/11/19 [facility] PAGE 3 RUN TIME: 42 Specimen Inquiry RUN USER: INTERFACE SPEC #: [id number] PATIENT: ANNI LIZAMA #[id number] (Continued) ------- GROSS DESCRIPTION (Continued) 4. New superior margin, stitch wylie new margin 5. New inferior margin, stitch wylie new margin Each specimen is labeled with the patient's name and medical record number. Specimen #1 is received in a formalin-filled container, labeled with the patient's name and designated "RIGHT breast lumpectomy". The specimen consists of a 30 gm, 6.0 x 5.5 x 2.5 cm portion of breast tissue with an inserted localization wire. Orientation sutures are placed as follows: Long - lateral, short - superior, double clip - deep. A 2.0 x 1.5 x 1.0 cm slightly spiculated mass is present in slices 4 through 8. The cut surfaces are pink-white, firm, and fibrotic with focal areas of induration. The mass is 0.2 cm from the superior margin, 0.2 cm from the inferior margin, 0.5 cm from the medial margin, and 2.0 cm from the lateral margin. A clip is identified in slice 6. The outer surface of the specimen is rubin-yellow, cauterized, and slightly fragmented. The remainder of the breast parenchyma is predominantly pink-yellow, lobulated adipose tissue with a few areas of consolidated fibrous tissue (90% adipose tissue and 10% fibrous tissue). There are no other lesions. The specimen is serially sectioned into 10 slices and submitted in its entirety in sequential order from anterior to posterior. Ink code: Blue - superior Red - inferior Black - posterior Green - anterior Clarence - medial Purple - lateral Section code: Slice 1: A1 and A2 Slice 2: A3 Slice 3: A4 and A5 Slice 4: A6 and A7 Slice 5: A8 and A9 Slice 6: A10 and A11 Slice 7: A12 and A13 Slice 8: A14 and A15 Slice 9: A16 and A17 Slice 10: A18 and A19 roque/ruthy 07/31/19 @ 7790 Specimen #2 is designated "sentinel nodes (total of 3)" and consists of six rubin-pink, firm lymph nodes with attached fibrofatty soft tissues, 0.2 to 2.8 cm. The cut surfaces are unremarkable. The lymph nodes are submitted in their entirety as follows: B1 - 3 single intact lymph nodes, B2 - 1 serially sectioned lymph node, CONTINUED ON NEXT PAGE RUN DATE: 08/11/19 [facility] PAGE 4 RUN TIME: 741 Specimen Inquiry RUN USER: INTERFACE SPEC #: [id number] PATIENT: DLANNI MCKENNA #[id number] (Continued) ------- GROSS DESCRIPTION (Continued) B3 - 1 serially sectioned lymph node, B4 - 1 serially sectioned lymph node. Specimen #3 is designated "new medial margin" and consists of a 2.5 x 2.0 x 0.5 cm portion of breast tissue. There is an identifiable suture which is designated by the surgeon as "new margin". The breast parenchyma is unremarkable. The margin is inked black. Entirely submitted as C1 and C2. Specimen #4 is designated "new superior margin" and consists of a 3.0 x 2.0 x 0.6 cm portion of breast tissue. There is an identifiable suture which is designated by the surgeon as "new margin". The breast parenchyma is unremarkable. The new margin is inked black. Entirely submitted as D1 and D2. Specimen #5 is designated "new inferior margin" and consists of a 5.5 x 2.5 x 0.7 cm portion of breast tissue. There is an identifiable suture which is designated by the surgeon as "new margin". The breast parenchyma is unremarkable. The new margin is inked black. Entirely submitted as E1 through E3. estephania 08/01/19 @ 1152 Signed Guanaco Pandya 08/10/19 1420 END OF REPORT - [place] LYMPHIMAG 2019-07-31 Patient Name: 14:46:00 ANNI LIZAMA Unit No: [id number] EXAMS: CPT CODE: [id number] [place] LYMPHIMAG [id number] PROCEDURE: NUCLEAR MEDICINE INJECTION FOR SENTINEL NODE WITH SCINTIGRAPHY INDICATION: Right breast cancer TECHNIQUE: Injection of 570 uCi technetium 99m filtered sulfur colloid was performed in the 10:00 periareolar right breast under sterile conditions and local anesthesia for sentinel lymph node identification. Injection was performed at 0645 hours. Lymphoscintigraphy was performed in AP and oblique projections with and without transmission images. FINDINGS: Focal intense uptake corresponding to injection site right breast. Focal uptake right axilla identified as the sentinel node and labeled by the nuclear weapons mechanical specialist. SL: [id number] at 1446 Reported and signed by: Sean Farrell MD CC: Elva Rivera MD Technologist: Bruno Mendoza Trnscrbd D/ ([id number]) AlexanderKWMayur Orig Print D/T: S: 07/31/2019 ([id number]) [facility] NAME: ANNI LIZAMA Radiology Department PHYS: Elva Davenport [address] : 1965 AGE: 53 SEX: F [place], [place] [address] LOC: KrystianU PHONE #: [phone] EXAM DATE: 07/31/2019 STATUS: [facility] FAX #: [phone] RAD NO: [id number] Page 1 Signed Report GLUBED 2019-07-31 13:04:00 Test Item Value Reference Range Interpretation Comme nts GLUBED (test code = GLUBED) 111 mg/dL 65-110 H UR HCG [id number] 10:44:00 Test Item Value Reference Range Interpretation Comments UR HCG QUAL (test NEGATIVE 1. Very di lute urine code = HCGQLU) specimens, as indicated by a lowspecific g ravity, may not contain rep resentative levels ofhCG. 2 . False negative result s may occur when the levels of hCGare below the sensi tivity level of the test. If is still suspec selam, a first morningurine sp ecimen should be colle cted 48 hours later and tested. [id number] 10:16:00 Test Item Value Reference Range Interpretation Comments GLUBED (test code = GLUBED) 109 mg/dL 65-110 N CHEMISTRY 7 [id number] 13:46:00 Test Item Value Reference Range Interpretation Comments SODIUM (test code = NA) 142 mEq/L 135-145 N POTASSIUM (test code = K) 5.3 mEq/L 3.5-5.0 H CHLORIDE (test code = CL) 105 mEq/L 100-115 N CARBON DIOXIDE (test code = CO2) 28 mEq/L 22-31 N ANION GAP (test code = GAP) 14.10 10-20 N GLUCOSE (test code = GLU) 142 mg/dL 65-110 H BLOOD UREA NITROGEN (test code = 16 mg/dL 7-18 N BUN) GLOMERULAR FILTRATION RATE (test 88 ml/min >60 N code = GFR) CREATININE (test code = CREAT) 0.7 mg/dL 0.5-1.0 N CALCIUM (test code = CA) 9.7 mg/dL 8.4-10.2 N CBC W/AUTO [id number] 13:17:00 Test Item Value Reference Range Interpretation Comments WHITE BLOOD CELL (test code = WBC) 7.7 K/mm3 6.6-12.1 N RED BLOOD CELL (test code = RBC) 3.50 M/mm3 3.45-5.01 N HEMOGLOBIN (test code = HGB) 12.3 g/dL 10.7-13.9 N HEMATOCRIT (test code = HCT) 38.0 % 32.1-42.1 N MEAN CELL VOLUME (test code = MCV) 109 fL 84.1-94.8 H MEAN CELL HGB (test code = MCH) 35.1 pg 27-35 H MEAN CELL HGB CONCETRATION (test 32.4 gm/dL 32.2-34.1 N code = MCHC) RED CELL DISTRIBUTION WIDTH (test 15.7 % 12.4-16.5 N code = RDW) PLATELET COUNT (test code = PLT) 385 K/mm3 133-385 N IMMATURE PLATELET FRACTION (test 0.0 % 0.0-10.8 N code = IPF) MEAN PLATELET VOLUME (test code = 8.9 fl 9.1-12.7 L MPV) NEUTROPHIL % (test code = NT%) 61.9 % 56.5-79.4 N LYMPHOCYTE % (test code = LY%) 24.2 % 14.3-34.3 N MONOCYTE % (test code = MO%) 11.4 % 5.1-10.4 H EOSINOPHIL % (test code = EO%) 1.6 % 0.1-3.0 N BASOPHIL % (test code = BA%) 0.6 % 0.1-1.0 N NEUTROPHIL # (test code = NT#) 4.8 K/mm3 LYMPHOCYTE # (test code = LY#) 1.9 K/mm3 MONOCYTE # (test code = MO#) 0.9 K/mm3 EOSINOPHIL # (test code = EO#) 0.12 K/mm3 BASOPHIL # (test code = BA#) 0.1 K/mm3 RBC MORPHOLOGY REQUIRED (test code NORMAL NORMAL = RBCM) PLATELET MORPHOLOGY REQUIRED (test NORMAL NORMAL code = PLTMR) UR HCG [id number] 13:11:00 Test Item Value Reference Range Interpretation Comments UR HCG QUAL (test NEGATIVE 1. Very di lute urine code = HCGQLU) specimens, as indicated by a lowspecific g ravity, may not contain rep resentative levels ofhCG. 2 . False negative result s may occur when the levels of hCGare below the sensi tivity level of the test. If is still suspec selam, a first morningurine sp ecimen should be colle cted 48 hours later and tested. BREAST,[id number] 16:57:00 RUN DATE: 02/13/19 [facility] PAGE 1 RUN TIME: 909 Specimen Inquiry RUN USER: INTERFACE PATIENT: ANNI LIZAMA LOC: RULA U #: [id number] AGE/SX: 53/F ROOM: RE02/09/19KATIA DR: Heaven Velazquez COOK FROZEN DESSERT : 67 BED: DIS: STATUS: PRE REF TLOC: SPEC #: [id number] RECD: 02/09/19 STATUS: FADY FONSECA #: [id number] KARL: 02/09/19- SUBM DR: Heaven Velazquez NP ENTERED: 02/10/19 SP TYPE: BREABX OTHR DR: Dmitry Chan MD ORDERED: LEVEL IV CODES: [id number] - BREAST, NOS COPIES TO: Heaven Velazquez NP [address] [facility] [address] [place], [place] [id number] [place] [address] [place], [place] [id number] PROCEDURES: LEVEL IV (Incomplete) TISSUES: BREAST, NOS - RIGHT BREAST BIOPSY CLINICAL HISTORY 53 year old, R/O IDC (kr) FIXATION TIME: RIGHT breast mass 1:00: In formalin: 01/09/19 at 1425 Out of formalin: 01/10/19 at 1825 FINAL DIAGNOSIS RIGHT breast mass 1:00, core biopsies - invasive ductal carcinoma - Canova grade 2, score 7 (tubules - 3, nuclei - 2, mitotic rate - 2) - maximum extent of tumor: 10 mm COMMENT: The technical components were performed at [facility] [place], [address] [place] [address], [address], [place] [address]. The interpretation is provided by [facility], [address] [place] [address]. Controls received from [facility] stained appropriately. Tissue code 1 CPT code(s): 26738, 73011-62, 80305-56 cds/kr dt: 02/11/19 CONTINUED ON NEXT PAGE RUN DATE: 02/13/19 [facility] PAGE 2 RUN TIME: 10 Specimen Inquiry RUN USER: INTERFACE -------- ----SPEC #: [id number] PATIENT: ANNI LIZAMA #[id number] (Continued) FINAL DIAGNOSIS(Continued) tracey/wpbenji 02/12/19 The following results are received from [facility], [place], [place] on February 13, 2019. BODY SITE: RIGHT breast tissue [id number] PROGNOSTIC / PREDICTIVE MARKERS Histology Image Analysis, Global IHC Quantitative Breast Panel ER: NEGATIVE Tumor Stained: 0% Intensity: 0+ Internal Control: Absent Anjum Score: 0 PgR: NEGATIVE Tumor Stained: 0% Intensity: 0+ Internal Control: Absent Anjum Score: 0 HER2 Breast: POSITIVE Score: 3+ Percentage of cells with uniform Intensive Complete Membrane Stainin% KI67: HIGH Tumor Stained: 28% Intensity: 3+ COMMENT: Specimen handlingmet the requirements specified in the latest version of the ASCO/CAP guidelines. I acknowledge the above findings. Travis Pandya M.D., Pathologist/ksr February 13, 2019 @ 0735 CONTINUED ON NEXT PAGE RUN DATE: 02/13/19 [facility] PAGE 3RUN TIME: 909 Specimen Inquiry RUN USER: INTERFACE SPEC #: [id number] PATIENT: ANNI LIZAMA #[id number] (Continued) GROSS DESCRIPTION ANATOMIC SOURCE OF TISSUE (per Requisition): RIGHT breast mass 1:00 The specimen is received in a formalin-filled container, labeled with the patient's name and designated "RIGHT breast mass 1:00". The specimen consists of two rubin-pink and yellow fibrofatty cylindrical soft tissues, 1.6 and 1.8 cm in length, submitted in toto labeled A1. roque/ruthy 02/10/19 @ 0851 MICROSCOPIC DESCRIPTION Tissue cores of the RIGHT breast mass 1:00 show extensive involvement of both cores by invasive carcinoma with mixed lobular/ductal features. The tumor is Canova Grade 2, score 7 (tubules - 3, nuclei - 2, mitotic rate - 2). E-Cadherin and p120 immunostains show strong positive membranous staining consistent with ductal origin. Prognostic markers will be performed on block A1. tracey/kr dt: 02/11/19 / tracey/wpd 02/12/19--------- --- Signed Guanaco Pandya 02/12/19 1657 END OF REPORT BREAST,[id number] 16:57:00 RUN DATE: 02/13/19 [facility] PAGE 1 RUN TIME: 913 Specimen Inquiry RUN USER: INTERFACE PATIENT: ANNI LIZAMA [facility] #: [id number] LOC: RULA #: [id number] AGE/SX: 53/F ROOM: RE02/09/19REG DR: Heaven Velazquez NP : 67 BED: DIS: STATUS: PRE REF TLOC: SPEC #: [id number] RECD: 02/09/19 STATUS: FADY RAYMUNDO #: [id number] KARL: 02/09/19- SUBM DR: Heaven Velazquez NP ENTERED: 02/10/19 SP TYPE: BREABX OTHR DR: Dmitry Chan MD ORDERED: LEVEL IV COMMENTS: CODES: [id number] - BREAST, NOS COPIES TO: Heaven Velazquez NP [address] [facility] [address] [place], [place] [id number] [place] [address] [place] [address] PROCEDURES: LEVEL IV (Incomplete) TISSUES: BREAST, NOS - RIGHT BREAST BIOPSY CLINICAL HISTORY 53 year old, R/O IDC (kr) FIXATION TIME: RIGHT breast mass 1:00: In formalin: 01/09/19 at 1425 Out of formalin: 01/10/19 at 1825 FINAL DIAGNOSIS RIGHT breast mass 1:00, core biopsies - 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 The interpretation is provided by [facility], [address], [place] [address]. Controls received from [facility] stained appropriately. Tissue code1 CPT code(s): 23458, 65556-98, 48880-69 CONTINUED ON NEXT PAGE RUN DATE: 02/13/19 [facility] PAGE 2 RUN TIME: 913 Specimen Inquiry RUN USER: INTERFACE SPEC #: [id number] PATIENT: ANNI LIZAMA #[id number] (Continued) FINAL DIAGNOSIS (Continued) cds/kr dt: 02/11/19 cds/wpd 02/12/19 The following results are received from [facility], [place], [place] on February 13, 2019. BODY SITE:RIGHT breast tissue [id number] PROGNOSTIC / PREDICTIVE MARKERS Histology Image Analysis, [...] 3+ COMMENT: Specimen handling met the requirements specifiedin the latest version of the ASCO/CAP guidelines. I acknowledge the above findings. C. Edilson Pandya M.D., Pathologist/ksr February 13, 2019 @ 0735 CONTINUED ON NEXT PAGE AMIE Cramer DATE: 02/13/19 [facility] PAGE 3 RUN TIME: 913 Specimen Inquiry RUN USER: INTERFACE SPEC #: [id number] PATIENT: ANNI LIZAMA #[id number] ([place]son nued) GROSS DESCRIPTION ANATOMIC SOURCE OF TISSUE (per Requisition): RIGHT breast mass 1:00 The specimen is received in a formalin- filled container, labeled with the patient's name and designated "RIGHT breast mass 1:00". The specimen consists of two rubin-pink and yellow fibrofatty cylindrical soft tissues, 1.6 [...] E-Cadherin and p120 immunostains show strong positive membranousstaining consistent with ductal origin. Prognostic markers will be performed on block A1. tracey/krdt: 02/11/19 / tracey/wpd 02/12/19 Signed Guanaco Pandya 02/12/19 1657 END OF REPORT
--- NOTE | 2020-12-04 16:51 | RAD REPORT ---
EXAM DESCRIPTION: RAD - Abdomen 1 View (KUB) - 12/04/2020 4:46 pm CLINICAL HISTORY: Abdomen pain. FINDINGS: The bowel gas pattern is unremarkable. A moderate amount of stool is present within the colon. Calcification within left pelvis presumably phlebolith.
[2020-12-04] MEDS ORDERED: FLEET ENEMA ADULT PR ONE (17:20)
[2020-12-04 17:44] LABS: Urine Blood NEGATIVE (Negative); Urine Glucose NEGATIVE (Negative); Urine Protein NEGATIVE (NEG)
[2020-12-04] MEDS ORDERED: LIDOCAINE JELLY 2%- 5 ML TUBE ONE (18:00)
--- NOTE | 2020-12-04 18:15 | ER ---
Nurse's Notes [facility] Name: Jacey Saeed Age: 55 yrs Sex: Female : 1965 Arrival Date: 12/04/2020 Time: 14:54 Bed 13 Private MD: Sherman Chaves B Diagnosis: Constipation;Fecal impaction Presentation: 12/04 15:05 Chief complaint: Patient states: Last BM . Last urination 10 am. No fever. ll1 Coronavirus screen: Client denies travel out of the [place] in the last 14 days. At this time, the client does not indicate any symptoms associated with coronavirus-19. Ebola Screen: Patient denies travel to an Ebola-affected area in the 21 days before illness onset. Initial Sepsis Screen: Does the patient meet any 2 criteria? No. Patient's initial sepsis screen is negative. Does the patient have a suspected source of infection? Yes: Acute abdominal pain. Risk Assessment: Do you want to hurt yourself or someone else? Patient reports no desire to harm self or others. Onset of symptoms was December 02, 2020. 15:05 Method Of Arrival: Ambulatory ll1 15:05 Acuity: ERNESTO 2 ll1 Historical: - Allergies: 15:05 Glipizide; ll1 15:05 Sulfa (Sulfonamide Antibiotics); ll1 - PMHx: 15:05 BURSITIS; Diabetes - IDDM; High Cholesterol; Hypertension; Stage one breast CA; ll1 - PSHx: 15:05 Port placement; Cholecystectomy; Lumpectomy; ll1 - Immunization history:: Flu vaccine is up to date. - Social history:: Smoking status: Patient denies any tobacco usage or history of. Screenin:21 Abuse screen: Denies threats or abuse. Nutritional screening: No deficits noted. vg1 Tuberculosis screening: No symptoms or risk factors identified. Fall Risk No fall in past 12 months (0 pts). No secondary diagnosis (0 pts). No IV (0 pts). Ambulatory Aid- None/Bed Rest/Nurse Assist (0 pts). Gait- Normal/Bed Rest/Wheelchair (0 pts) Mental Status- Oriented to own ability (0 pts). Total Wells Fall Scale indicates No Risk (0-24 pts). Assessment: 15:16 General: Appears in no apparent distress. uncomfortable, Behavior is cooperative, vg1 anxious. Pain: Complains of pain in suprapubic area Pain currently is 6 out of 10 on a pain scale. Noted to be grimacing. Neuro: Level of Consciousness is awake, alert, obeys commands, Oriented to person, place, time, situation. Cardiovascular: Patient's skin is warm and dry. Respiratory: Airway is patent Respiratory effort is even, unlabored. GI: Reports constipation, since . Pt stated 'I attempted to remove stool and now I have some bleeding, but I think I popped some of my hemorrhoids. : Reports incontinence, since 10am. Pt stated 'I feel the need to urinate but I am unable to'. EENT: No signs and/or symptoms were reported regarding the EENT system. Derm: Skin is intact, is healthy with good turgor. Musculoskeletal: Circulation, motion, and sensation intact. 16:14 Reassessment: Patient appears in no apparent distress at this time. No changes from vg1 previously documented assessment. Patient and/or family updated on plan of care and expected duration. Pain level reassessed. Patient is alert, oriented x 3, equal unlabored respirations, skin warm/dry/pink. 17:43 Reassessment: Patient appears in no apparent distress at this time. Patient and/or vg1 family updated on plan of care and expected duration. Pain level reassessed. Patient is alert, oriented x 3, equal unlabored respirations, skin warm/dry/pink. 18:38 Reassessment: Patient appears in no apparent distress at this time. Patient and/or vg1 family updated on plan of care and expected duration. Pain level reassessed. Patient is alert, oriented x 3, equal unlabored respirations, skin warm/dry/pink. Vital Signs: 15:05 BP 103 / 61; Pulse 73; Resp 16; Temp 98.1; Pulse Ox 96% on R/A; Weight 86.64 kg; Height ll1 5 ft. 6 in. (167.64 cm); Pain 6/10; 15:20 BP 114 / 71; Pulse 77; Resp 20; Pulse Ox 100% on R/A; vg1 16:14 BP 104 / 76; Pulse 85; Resp 20; Pulse Ox 100% on R/A; vg1 17:00 BP 124 / 77; Pulse 76; Resp 20; Pulse Ox 100% ; vg1 18:38 BP 123 / 81; Pulse 70; Resp 16; Pulse Ox 100% on R/A; vg1 15:05 Body Mass Index 30.83 (86.64 kg, 167.64 cm) ll1 ED Course: 14:54 Patient arrived in ED. mr 14:55 Sherman Chaves MD is Private Physician. mr 15:05 Arm band placed on. ll1 15:07 Triage completed. ll1 15:08 [facility]ian[facility] Muniz [facility]C [facility]. kb 15:08 Logan Stephens MD is Attending Physician. kb 15:08 Angelique Osborne, RN is Primary Nurse. vg1 15:21 Patient has correct armband on for positive identification. Placed in gown. Bed in low vg1 position. Call light in reach. Side rails up X 1. 15:33 Bladder scan completed. 176ml. vg1 16:13 Xray at bedside. vg1 16:13 Urine collected: straight cath specimen, clear, marah colored, Amount Returned: 100mL. vg1 Speci-cath kit inserted, using sterile technique, 16 Fr., specimen obtained. 16:46 Abdomen 1 View (KUB) XRAY In Process Unspecified. EDMS 18:39 No provider procedures requiring assistance completed. Patient did not have IV access vg1 during this emergency room visit. Administered Medications: 17:16 Drug: Fleet Enema 133 ml Route: [place]; vg1 17:43 Follow up: Response: No adverse reaction vg1 18:11 Drug: Lidocaine Gel 2 % 1 application Route: Mucous Membrane; vg1 Outcome: 18:14 Discharge ordered by . kb 18:39 Discharged to home ambulatory. vg1 18:39 Condition: stable 18:39 Discharge instructions given to patient, Instructed on discharge instructions, follow up and referral plans. Demonstrated understanding of instructions, follow-up care. 18:39 Patient left the ED. vg1 Signatures: Dispatcher [employer] EDMS Dianne Muniz FNP-C FNP-Ckb Rivera, Mary mr Angelique Osborne, RN RN vg1 Sylvie Velasco RN RN ll1
--- NOTE | 2020-12-04 18:15 | EDPHYS ---
Physician Documentation [facility] Name: Jacey Saeed Age: 55 yrs Sex: Female : 1965 Arrival Date: 12/04/2020 Time: 14:54 Bed 13 Private MD: Sherman Chaves B ED Physician Logan Stephens HPI: 12/04 18:16 This 55 yrs old Female presents to ER via Ambulatory with complaints of kb Urinary Problem. 18:16 The patient presents with constipation. Onset: The symptoms/episode began/occurred 4 kb day(s) ago. The symptoms do not radiate. Associated signs and symptoms: Pertinent positives: constipation, difficulty urinating. The symptoms are described as constant. Modifying factors: The symptoms are alleviated by nothing, the symptoms are aggravated by nothing. Severity of pain: At its worst the pain was mild in the emergency department the pain is unchanged. The patient has experienced similar episodes in the past, multiple times. The patient has not recently seen a physician. Pt reports she has been constipated since . States she was having difficulty urinating today which is what prompted her visit to the ER. States this has happened before causing the same difficulty so she knew she needed to come in to get help clearing the feces out. . Historical: - Allergies: 15:05 Glipizide; ll1 15:05 Sulfa (Sulfonamide Antibiotics); ll1 - PMHx: 15:05 BURSITIS; Diabetes - IDDM; High Cholesterol; Hypertension; Stage one breast CA; ll1 - PSHx: 15:05 Port placement; Cholecystectomy; Lumpectomy; ll1 - Immunization history:: Flu vaccine is up to date. - Social history:: Smoking status: Patient denies any tobacco usage or history of. ROS: 18:15 Constitutional: Negative for fever, chills, and weight loss, MS/Extremity: Negative for kb injury and deformity, Skin: Negative for injury, rash, and discoloration, Neuro: Negative for headache, weakness, numbness, tingling, and seizure. 18:15 Abdomen/GI: Positive for constipation. 18:15 : Positive for difficulty urinating. Exam: 18:15 Constitutional: This is a well developed, well nourished patient who is awake, alert, kb and in no acute distress. Head/Face: Normocephalic, atraumatic. Skin: Warm, dry with normal turgor. Normal color. MS/ Extremity: Pulses equal, no cyanosis. Neurovascular intact. Full, normal range of motion. Neuro: Awake and alert, GCS 15, oriented to person, place, time, and situation. Moves all extremities. Normal gait. 18:15 Abdomen/GI: Inspection: abdomen appears normal, Bowel sounds: normal, in all quadrants, Palpation: soft, in all quadrants, mild abdominal tenderness, in the suprapubic area, "feels full". Vital Signs: 15:05 BP 103 / 61; Pulse 73; Resp 16; Temp 98.1; Pulse Ox 96% on R/A; Weight 86.64 kg; Height ll1 5 ft. 6 in. (167.64 cm); Pain 6/10; 15:20 BP 114 / 71; Pulse 77; Resp 20; Pulse Ox 100% on R/A; vg1 16:14 BP 104 / 76; Pulse 85; Resp 20; Pulse Ox 100% on R/A; vg1 17:00 BP 124 / 77; Pulse 76; Resp 20; Pulse Ox 100% ; vg1 18:38 BP 123 / 81; Pulse 70; Resp 16; Pulse Ox 100% on R/A; vg1 15:05 Body Mass Index 30.83 (86.64 kg, 167.64 cm) ll1 Procedures: 18:14 Fecal disimpaction: digital disimpaction was performed, with a moderate amount of stool kb expressed. The patient tolerated the intervention well. MDM: 15:11 Patient medically screened. kb 18:14 Data reviewed: vital signs, nurses notes. Data interpreted: Pulse oximetry: on room air kb is 100 %. Interpretation: normal. Counseling: I had a detailed discussion with the patient and/or guardian regarding: the historical points, exam findings, and any diagnostic results supporting the discharge/admit diagnosis, lab results, radiology results, the need for outpatient follow up, a family practitioner, to return to the emergency department if symptoms worsen or persist or if there are any questions or concerns that arise at home. 18:15 ED course: Pt was able to urinate on her own after straight cath. Pt educated to kb increased fluids . 12/04 16:29 Order name: Urine Dipstick--Ancillary (enter results); Complete Time: 17:56 eb 12/04 16:29 Order name: Urine --Ancillary (enter results); Complete Time: 17:56 eb 12/04 15:21 Order name: Urine Dipstick-Ancillary (obtain specimen); Complete Time: 16:19 kb 12/04 15:21 Order name: Abdomen 1 View (KUB) XRAY; Complete Time: 16:57 kb 12/04 15:21 Order name: Bladder Scanner; Complete Time: 15:33 kb 12/04 15:35 Order name: Straight Cath; Complete Time: 16:13 kb Administered Medications: 17:16 Drug: Fleet Enema 133 ml Route: [place]; vg1 17:43 Follow up: Response: No adverse reaction vg1 18:11 Drug: Lidocaine Gel 2 % 1 application Route: Mucous Membrane; vg1 Disposition: 18:43 Co-signature as Attending Physician, Logan Stephens MD. rn Disposition: 12/04/20 18:14 Discharged to Home. Impression: Constipation, Fecal impaction. - Condition is Stable. - Discharge Instructions: Constipation, Adult, [id number], Fecal Impaction. - Medication Reconciliation Form, Thank You Letter, Antibiotic Education, Prescription Opioid Use form. - Follow up: Private Physician; When: 2 - 3 days; Reason: Recheck today's complaints, Continuance of care, Re-evaluation by your physician. Follow up: Emergency Department; When: As needed; Reason: Worsening of condition. Signatures: Dispatcher [employer] EDMA Dianne Muniz, ENGINEERING RECRUITER-C ENGINEERING RECRUITER-Ckb Logan Stephens MD MD rn Garcia, Victoria, RN RN 1 Sylvie Velasco RN RN 1 Corrections: (The following items were deleted from the chart) 18:39 18:14 12/04/2020 18:14 Discharged to Home. Impression: Constipation; Fecal impaction. vg1 Condition is Stable. Forms are Medication Reconciliation Form, Thank You Letter, Antibiotic Education, Prescription Opioid Use. Follow up: Private Physician; When: 2 - 3 days; Reason: Recheck today's complaints, Continuance of care, Re-evaluation by your physician. Follow up: Emergency Department; When: As needed; Reason: Worsening of condition. kb
[2020-12-04 18:44] VITALS: TEMP 98.1
[2020-12-04 18:45] VITALS: O2SAT 100
[2020-12-04 18:50] VITALS: BP 123/81
== END 2020-12-04 18:39 | disposition home or self-care (01) ==
LOC: ER 14:51
DX: K56.41 Fecal impaction (principal); I10 Essential (primary) hypertension; Z85.3 Personal history of malignant neoplasm of breast; Z88.2 Allergy status to sulfonamides; Z88.8 Allergy status to other drugs, medicaments and biological substances
CPT/HCPCS: 74018; 81003; 81025; 99284